=== PATIENT | male | born 1990 | race Two or more races ===

== ENCOUNTER 2016-10-30 12:36 | Emergency (ER) | payer SELFPAY ==
[~2016-10-30] VITALS: Ht 177.8 cm; Wt 106.6 kg
[2016-10-30 13:11] VITALS: BP 131/82
== END 2016-10-30 13:25 | disposition home or self-care (01) ==
LOC: ER 12:50
DX: H10.402 Unspecified chronic conjunctivitis, left eye (principal); Z91.013 Allergy to seafood